=== PATIENT | female | born 1970 | race Caucasian/White ===

== ENCOUNTER 2022-04-25 16:23 | Outpatient (RCR) | payer BC, SELFPAY | END 2023-02-09 23:59 | disposition home or self-care (01) | PROVIDERS: PCP Family Medicine; Visit Provider Family Medicine | DX: M54.9 Dorsalgia, unspecified (principal); Z51.89 Encounter for other specified aftercare | CPT/HCPCS: 97110; 97162 ==

== ENCOUNTER 2022-07-29 07:31 | Outpatient (CLI) | payer BC, SELFPAY ==
[2022-07-29 09:52] LABS: Iron* 92 ug/dL (37-170)
[2022-07-29 09:56] LABS: Chloride* 107 mmol/L (96-114); Potassium* 4.2 mmol/L (3.6-5.1); Sodium* 138 mmol/L (135-149)
[2022-07-29 09:58] LABS: Alkaline Phosphatase* 123 U/L (40-150); Aspartate Amino Transferase* 24 U/L (12-35); Bilirubin Total* 0.8 mg/dL (0.1-1.5); Blood Urea Nitrogen* 10 mg/dL (5-24); Carbon Dioxide* 24 mmol/L (20-32); Cholesterol* 142 mg/dL (90-199); Creatinine* 0.5 mg/dL (0.5-1.5); Estimated Glomerular Filt Rate 115 ml/min; Total Protein* 6.2 g/dL (6.0-8.3)
[2022-07-29 09:59] LABS: Alanine Aminotransferase* 25 U/L (4-35); Calcium* 8.9 mg/dL (8.4-10.6); Glucose* 113 mg/dL (60-115); HDL Cholesterol* 52 mg/dL (>=50); LDL Cholesterol Calculated 76 mg/dL (<100); Triglycerides* 68 mg/dL (40-149)
[2022-07-29 10:03] LABS: Percent Iron Saturation 31 % (20-50); Total Iron Binding Capacity 293 ug/dL (265-497)
[2022-07-29 10:11] LABS: Vitamin D 25 Hydroxy* 45 ng/mL (30-80)
[2022-07-29 10:27] LABS: TSH With Reflex to FT4* 0.017 uIU/mL (0.270-4.200)
[2022-07-29 10:55] LABS: Free T4 Free Thyroxine* 1.49 ng/dL (0.70-1.85)
[2022-08-06 03:40] LABS: Vitamin B12* 933 pg/mL (243-894)
== END 2022-07-29 07:32 | disposition home or self-care (01) ==
LOC: NFLDREF 07:32
PROVIDERS: PCP Family Medicine; Visit Provider Family Medicine
DX: Z01.419 Encounter for gynecological examination (general) (routine) without abnormal findings (principal); E55.9 Vitamin D deficiency, unspecified; E03.9 Hypothyroidism, unspecified; D50.9 Iron deficiency anemia, unspecified; E66.01 Morbid (severe) obesity due to excess calories; E53.8 Deficiency of other specified B group vitamins; F41.9 Anxiety disorder, unspecified
CPT/HCPCS: 80053; 80061; 82306; 82607; 82728; 83540; 83550; 84439; 84443

== ENCOUNTER 2022-11-01 17:56 | Outpatient (CLI) | payer BC, SELFPAY ==
--- NOTE | 2022-11-01 18:00 | CRLHL7_ITS ---
For Patients: As a result of the Cures Act, medical imaging exams and procedure reports are released immediately into your electronic medical record. You may view this report before your referring provider. If you have questions, please contact your health care provider. BILATERAL SCREENING MAMMOGRAM WITH COMPUTER-AIDED DETECTION AND TOMOSYNTHESIS TECHNIQUE: CC and MLO views were obtained. These mammographic images have been obtained using full-field digital technique. These mammographic images were interpreted with the benefit of computer-aided detection. Breast Tomosynthesis was used in this interpretation. COMPARISON FILM: 06/17/20, 02/21/19, 02/20/18. FINDINGS: The breasts are almost entirely fatty IMPRESSION: There is no radiographic evidence for malignancy. ASSESSMENT: BI-RADS Category 2: Benign RECOMMENDATION: Routine screening mammogram in 1 year. A lay language report of this examination will be provided to the patient. Williams Norwood M.D. Diagnostic Radiologist [email or web address] DORA/travis Transcribed: 4:42 p.oscar robles/Dictated by: Williams Norwood MD @ 11/02/2022 9:43:00 AM (Electronically Signed)
== END 2022-11-01 17:57 | disposition home or self-care (01) ==
LOC: MAMMO 17:57
PROVIDERS: PCP Family Medicine; Visit Provider Family Medicine
DX: Z12.31 Encounter for screening mammogram for malignant neoplasm of breast (principal)
CPT/HCPCS: 77063; 77067

== ENCOUNTER 2023-01-09 09:20 | Outpatient (CLI) | payer BC, SELFPAY | END 2023-01-09 09:21 | disposition home or self-care (01) | LOC: OP CLINIC 09:20 | PROVIDERS: PCP Family Medicine; Visit Provider Surgery | DX: Z12.11 Encounter for screening for malignant neoplasm of colon (principal); K63.5 Polyp of colon | CPT/HCPCS: 45385; 88305; 99153; J2250; J3010 ==

== ENCOUNTER 2023-04-06 11:01 | Outpatient (CLI) | payer BC, SELFPAY ==
[2023-04-06 15:23] LABS: PCR FLU A Negative PCR FLU A (Negative); PCR FLU B Negative PCR FLU B (Negative)
[2023-04-06 15:24] LABS: SARS PCR* Negative SARS-CoV-2 (Negative)
== END 2023-04-06 11:02 | disposition home or self-care (01) ==
LOC: LONREF 11:02
PROVIDERS: PCP Family Medicine; Visit Provider Nurse Practitioner Family
DX: R50.9 Fever, unspecified (principal)
CPT/HCPCS: 87631

== ENCOUNTER 2023-08-04 07:45 | Outpatient (CLI) | payer BC, MEDICAID, SELFPAY ==
--- OUTSIDE RECORDS SUMMARY | 2023-08-10 15:39 | XMS_ITS | Clinical Summary ---
Author Name Unknown Organization [facility] Address [place], [place] [address] Care Team Providers Care Tongue Trimmer Name Role Phone Irene Cueva MD Primary Care Provider + Allergies Active Allergy Reactions Criticality Noted Date Comments Hydrocodone-Acetaminophe n Stomach Upset 09/05/2018 Patient will vomit with medication. Medications Medication Sig Dispensed Refills Start Date End Date Status CALCIUM CITRATE 1,000 MG TAB 2 tablets daily 0 05/28/2008 Active MULTIVITAMIN TAB take 1 tablet by oral route once daily with food 0 05/28/2008 Active AVIANE 0.1 MG-20 MCG TABIndications:Rou chun general medical examination at a health care facility take 1 tablet by oral route once daily 84 3 05/28/2008 Active FERROUS GLUCONATE 325 MG TABIndications:Sta tus post bariatric surgery Once daily 90 3 05/28/2008 Active AMBIEN 10 MG TAB take 1 tablet (10 mg) by oral route once daily at bedtime as needed 1 0 07/04/2008 Active sertraline (ZOLOFT) 100 mg tabletIndications: Dysthymia Take 1 tablet by mouth once daily. needs appt for further refills 30 Tab 0 09/01/2009 Active Syringe with Needle, Safety (BD INTEGRA) 3 mL 25 x 5/8 SyrgIndications:St atus post bariatric surgery As directed. 1 Syringe 0 10/27/2009 Active cyanocobalamin (VITAMIN B12) 1,000 mcg/mL injectionIndicatio ns:Status post bariatric surgery Inject 1 mL intramuscular every 4 weeks. 1 mL 0 10/28/2009 Active Ferrous Gluconate 324 mg (38 mg Iron) tabletIndications: Status post bariatric surgery Take 1 tablet by mouth once daily. 30 Tab 0 10/28/2009 Active cholecalciferol (VITAMIN D3) 5,000 unit capsule Take 5,000 Units by mouth once daily. 3 08/27/2018 Active norethindrone, Contraceptive, (MICRONOR, 28,) 0.35 mg tablet Take 0.35 mg by mouth once daily. 3 07/06/2018 Active venlafaxine (EFFEXOR XR) 150 mg Extended-Release capsule Take 225 mg by mouth once daily with a meal. 0 Active buPROPion (WELLBUTRIN XL) 300 mg Extended-Release tablet Take 300 mg by mouth once daily. 0 08/25/2018 Active buPROPion (WELLBUTRIN XL) 150 mg Extended-Release tablet Take 150 mg by mouth once daily. 1 08/07/2018 Active SUMAtriptan (IMITREX) 100 mg tablet Take 100 mg by mouth. FOR HEADACHE 3 07/25/2018 Active venlafaxine (EFFEXOR XR) 75 mg cp24 Extended-Release capsule Take 225 mg by mouth once daily with a meal. 3 07/15/2018 Active levothyroxine (SYNTHROID) 150 mcg tablet Take 150 mcg by mouth once daily. 3 10/15/2018 Active Active Problems Problem Noted Date Diagnosed Date CHRISTIANO (obstructive sleep apnea) 07/04/2008 Dysthymia 05/28/2008 Status post bariatric surgery 05/28/2008 Unspecified hypothyroidism 01/22/2007 Immunizations Name Administration Dates Next Due Td (Age >=7 Years) 05/30/2000 Family History Medical History Relation Name Comments Diabetes Father Hypertension Father Diabetes Mother Cancer-breast Sister 1 age 45 Diabetes Sister 1 Hyperlipidemia Sister 2 Hyperlipidemia Sister 3 Hypertension Sister 4 Relation Name Status Comments Father Alive Mother Alive Sister 1 Sister 2 Sister 3 Sister 4 Social History Tobacco Use Types Packs/Day Years Used Date Smoking Tobacco: Never Smokeless Tobacco: Never Tobacco Cessation:Counseling Given: Yes Alcohol Use Standard Drinks/Week Comments Yes 0 (1 standard drink = 0.6 oz pur e alcohol) rare Sex and Gender Information Value Date Recorded Sex Assigned at Not on file Gender Identity Not on file Sexual Orientation Not on file Obstetrics History Para Term AB IAB SAB Ectopic Multiple Livin g Live Births 0 0 0 0 0 0 0 0 0 0 Last Filed Vital Signs Vital Sign Reading Time Taken Comments Blood Pressure 116/80 12/21/2018 9:54 AM CDT Pulse 82 12/21/2018 9:54 AM CDT Temperature 36.8 ??C (98.2 ??F) 12/21/2018 9:54 AM CD T Respiratory Rate 16 12/28/2005 11:0 5 AM CDT Oxygen Saturation 98% 12/21/2018 9:54 AM CDT Inhaled Oxygen Concentration - - Weight 121.2 kg (267 lb 3.2 oz) 12/21/2018 9:54 AM CDT Height 155.5 cm (5' 1.22) 12/21/2018 9:54 AM CD T Body Mass Index 50.12 12/21/2018 9:54 AM CDT Plan of Treatment Health Maintenance Due Date Last Done Comments COVID-19 vaccine series (#1) 02/19/1973 Tdap 1983 Depression screening for age 12+ 1984 HIV for age 15-65 1987 Hepatitis C screening for age 18-79 1990 Tetanus booster 05/30/2010 05/30/2000 Colonoscopy through age 75 2017 Lipids for age 45-75 2017 01/25/2007 Mammogram for age 45-75 2017 BMI (ht and wt on same day) for age 18+ 12/22/2019 12/21/2018, 09/05/2018 Zoster (shingles) series for age 50+ (1 of 2) 2022 Influenza for age 50-64 03/24/2023 Pap test for age 21-65 08/05/2025 3, 08/05/2022, 02/10/2017, Additional history exists Pneumococcal series for age 6-64 Aged Out No longer eligible based on patient's age to complete this topic Care Teams Tongue Trimmer Relationship Specialty Start Date End Date Irene Cueva MD [address] [place] [address] PCP - General Family Practice 09/05/18
== END 2023-08-04 07:46 | disposition home or self-care (01) ==
LOC: NFLDREF 08-10 15:36
PROVIDERS: PCP Family Medicine; Referring Provider Family Medicine; Visit Provider Family Medicine
DX: D50.9 Iron deficiency anemia, unspecified (principal); E03.9 Hypothyroidism, unspecified; E53.8 Deficiency of other specified B group vitamins; E55.9 Vitamin D deficiency, unspecified
CPT/HCPCS: 80053; 80061

== ENCOUNTER 2023-09-15 10:27 | Outpatient (CLI) | payer BC, MEDICAID, SELFPAY | END 2023-09-15 10:28 | disposition home or self-care (01) | PROVIDERS: PCP Family Medicine; Visit Provider Family Medicine | DX: D50.9 Iron deficiency anemia, unspecified (principal); E03.9 Hypothyroidism, unspecified; E55.9 Vitamin D deficiency, unspecified; E53.8 Deficiency of other specified B group vitamins; Z98.84 Bariatric surgery status | CPT/HCPCS: 82306; 82607; 82728; 84439; 84443 ==

== ENCOUNTER 2023-09-25 10:23 | Outpatient (CLI) | payer MEDICAID, SELFPAY | END 2023-09-25 10:24 | disposition home or self-care (01) | PROVIDERS: PCP Family Medicine; Referring Provider Family Medicine; Visit Provider Family Medicine | DX: E03.9 Hypothyroidism, unspecified (principal) | CPT/HCPCS: 84439; 84443 ==

== ENCOUNTER 2023-12-11 07:39 | Outpatient (CLI) | payer BC, SELFPAY ==
--- OUTSIDE RECORDS SUMMARY | 2023-12-29 06:37 | XMS_ITS | Clinical Summary ---
Author Organization [facility] Address [place], [place] [address] Care Team Providers Care Minute Clerk For Basic Traffic Name Role Phone Irene Cueva MD Primary [...] by mouth once daily with a meal. Active buPROPion (WELLBUTRIN XL) 300 mg Extended-Release [...] Health Maintenance Due Date Last Done Comments Tdap 1983 Depression screening for age 12+ 1984 HIV for age 15-65 1987 Hepatitis C screening for age 18-79 1990 Tetanus booster 05/30/2010 05/30/2000 Colonoscopy through age 75 2017 Lipids for age 45-75 2017 01/25/2007 Mammogram for age 45-75 2017 BMI (ht and wt on same day) for age 18+ 12/22/2019 12/21/2018, 09/05/2018 Zoster (shingles) series for age 50+ (1 of 2) 2022 COVID-19 vaccine series ( - 2022-24 season) 2023 Influenza for age 50-64 03/24/2024 Pap test for age 21-65 08/05/2025 3, 08/05/2022, 02/10/2017, Additional history exists Pneumococcal series for age 6-64 Aged Out No longer eligible based on patient's age to complete this topic Procedures Procedure Name Priority Date/Time Associated Diagnosis Comments HPV THIN PREP Routine 08/05/2022 11:00 AM BRANCH EXAMINER LIPID PANEL Routine 01/25/2007 9:47 AM CDT Screening Lipid Disorders from Last 3 Months or Most Recently Relevant to Health Maintenance Results * HPV HIGH RISK (08/05/2022 11:00 AM BRANCH EXAMINER) TYPE 16 Negative Negative 08/11/2022 2:05 PM BRANCH EXAMINER [facility] TYPE 18 Negative Negative 08/11/2022 2:05 PM BRANCH EXAMINER [facility] OTHER HIGH RISK TYPES Negative Negative 08/11/2022 2:05 PM BRANCH EXAMINER [facility] Other (Cervical/Vagina l) 08/05/2022 11:00 AM BRANCH EXAMINER 08/09/2022 5:20 PM BRANCH EXAMINER Narrative [facility] - 08/11/2022 2:05 PM BRANCH EXAMINER HPV types 16, 18, 31, 33, 35, 39, 45, 51, 52, 56, 58, 59, 66 and 68 DNA were undetectable or below the pre-set threshold. Methodology: Jerman Chay 4800 HPV Test Irene Cueva MD MICROBIOLOGY [facility] [address] * LIPID PANEL (01/25/2007 9:47 AM CDT) CHOLESTEROL,TOTAL 170 110 - 199 mg/dL [facility] TRIGLYCERIDES 102 <150 mg/dL [facility] HDL CHOLESTEROL 67 >40 mg/dL [facility] CHOL/HDL RATIO 2.54 <4.51 [facility] LDL CHOLESTEROL 83 <131 mg/dL [facility] PATIENT STATUS Fasting [facility] Blood specimen (specimen) BLOOD SPECIMEN / Unknown 01/25/2007 9:47 AM CDT 01/25/2007 9:43 AM CDT Julieta Carpenter CHEMISTRY [facility] [address] [place] [address] from Last 3 Months or Most Recently Relevant to Health Maintenance Care Teams Minute Clerk For Basic Traffic Relationship Specialty Start Date End Date Irene Cueva MD [address] [place] [address] PCP - General Family Practice 09/05/18
== END 2023-12-11 07:40 | disposition home or self-care (01) ==
LOC: NFLDREF 12-29 06:35
PROVIDERS: PCP Family Medicine; Referring Provider Family Medicine; Visit Provider Family Medicine
DX: E03.9 Hypothyroidism, unspecified (principal)
CPT/HCPCS: 84443

== ENCOUNTER 2024-11-06 07:51 | Outpatient (CLI) | payer MEDICAID, SELFPAY | END 2024-11-06 07:52 | disposition home or self-care (01) | LOC: NFLDREF 11-08 17:51 | PROVIDERS: PCP Family Medicine; Referring Provider Family Medicine; Visit Provider Family Medicine | DX: R73.01 Impaired fasting glucose (principal); E53.8 Deficiency of other specified B group vitamins; D50.9 Iron deficiency anemia, unspecified; E03.9 Hypothyroidism, unspecified; E55.9 Vitamin D deficiency, unspecified; M81.0 Age-related osteoporosis without current pathological fracture; E78.5 Hyperlipidemia, unspecified | CPT/HCPCS: 80053; 80061; 82306; 82607; 82728; 84443 ==

== ENCOUNTER 2024-11-19 15:25 | Outpatient (CLI) | payer MEDICAID, SELFPAY ==
--- NOTE | 2024-11-19 15:40 | CRLHL7_ITS ---
For Patients: As a result of the Century Cures Act, medical imaging exams and procedure reports are released immediately into your electronic medical record. You may view this report before your referring provider. If you have questions, please contact your health care provider. INDICATION: BILATERAL SCREENING MAMMOGRAM, ASYMPTOMATIC 54 F COMPARISON: 11/01/22, 06/17/20, 02/21/19 TECHNIQUE: CC and MLO views were obtained. These mammographic images have been obtained using full-field digital technique. These mammographic images were interpreted with the benefit of computer aided detection and tomosynthesis. BREAST COMPOSITION: The breasts are almost entirely fatty. FINDINGS: No suspicious findings. ASSESSMENT: BI-RADS 1 Negative RECOMMENDATION: Annual screening mammogram. A lay language report of this examination will be provided to the patient. Dictated by: Williams Norwood MD @ 11/27/2024 12:35:54 (Electronically Signed)
== END 2024-11-19 15:26 | disposition home or self-care (01) ==
LOC: MAMMO 15:26
PROVIDERS: PCP Family Medicine; Visit Provider Family Medicine
DX: Z12.31 Encounter for screening mammogram for malignant neoplasm of breast (principal)
CPT/HCPCS: 77063; 77067

== ENCOUNTER 2024-11-22 07:59 | Outpatient (CLI) | payer MEDICAID, SELFPAY ==
--- NOTE | 2024-11-22 08:15 | CRLHL7_ITS ---
For Patients: As a result of the Century Cures Act, medical imaging exams and procedure reports are released immediately into your electronic medical record. You may view this report before your referring provider. If you have questions, please contact your health care provider. INDICATION: postmenopausal bleeding COMPARISON: none TECHNIQUE: 2D martinez scale and color Doppler images were acquired of the pelvis using a transabdominal and transvaginal approach. FINDINGS: Sonographic images demonstrate a normal size and smooth outer contour of the uterus. Uterus measures 7.7 cm in length by 3.5 cm in AP diameter by 4.0 cm in transverse dimension. Small cervical nabothian cysts are present. Hyperechoic structure within the posterior fundal myometrium measures 1.5 x 0.9 x 1.3 cm. The endometrial lining measures 4.8 mm in composite thickness. The ovaries are not visualized due to overlying bowel gas. There are no suspicious fluid collections within the cul-de-sac. IMPRESSION: Posterior fundal intramural fibroid measures 1.5 cm. Endometrial thickness 4.8 millimeters. No endometrial fluid. Dictated by Williams Norwood MD @ 11/22/2024 10:08:57 AM (Electronically Signed)
== END 2024-11-22 08:00 | disposition home or self-care (01) ==
LOC: US 08:00
PROVIDERS: PCP Family Medicine; Visit Provider Family Medicine
DX: N95.0 Postmenopausal bleeding (principal); D25.1 Intramural leiomyoma of uterus; R93.89 Abnormal findings on diagnostic imaging of other specified body structures
CPT/HCPCS: 76830; 76856

== ENCOUNTER 2025-04-04 06:00 | Day surgery (SDC) | payer MEDICAID, SELFPAY ==
[2025-04-04 06:25] VITALS: BMI 49.6
[2025-04-04] MEDS: LACTATED RINGERS 500 ML 500 ML 100 ML IV (06:29)
[2025-04-04 06:51] VITALS: BP 140/86; PULSE 83; RESP 16; TEMP 36.9; O2SAT 95
[2025-04-04 06:51] LABS: Hemoglobin* 13.6 gm/dL (12.0-16.0)
[2025-04-04] MEDS: SODIUM CHLORIDE 0.9 % (FLUSH) 10 ML SYRINGE IVF (06:54)
--- NOTE | 2025-04-04 07:16 | W.PM.H&PU_ITS ---
History & Physical Update History & Physical Update H&P Reviewed and patient assessed: No changes noted H&P Updates: Ms. Tucker is seen in pre-op prior to planned hysteroscopy, D&C, mirena IUD insertion for post-menopausal bleeding. No interval change to her health history or questions today. We again reviewed the risks, benefits and alternatives to the planned procedure. Written consent was re-signed. Post-procedure restrictions and expectations reviewed. Pre-op labs reviewed and are within normal limits. No UPT as post- menopausal (2 years or amenorrhea prior to onset of this bleeding). No perioperative antibiotics indicated.
--- NOTE | 2025-04-04 07:18 | P.GYNPRC_ITS ---
Procedure Note Time Seen by Provider: 08:21 Date of procedure: 04/04/25 Will [facility] bill your pro fee for this procedure?: Yes Pre-op diagnosis: Postmenopausal bleeding Post-op diagnosis: Postmenopausal bleeding Procedure: Hysteroscopy, dilation and curettage (Truclear), Mirena IUD insertion Anesthesia: MAC and local Complications: None Surgeon: Leonardo Young MD Estimated blood loss (mL): 5 IV fluids (mL): 400 Urine Output (mL): 150 Pathology: specimen obtained, sent to pathology Condition: stable Disposition: floor Findings: External genital, vaginal and cervix appear within normal limits Endometrial cavity notable for proliferative, polypoid and mildly erythematous appearance Normal bilateral tubal ostia Procedure Description: Procedure in detail: Patient was taken to the operating room with IV running. She was positioned in dorsal lithotomy position with her legs fully supported in Yellofin stirrups. Monitored anesthesia care was administered. She was prepped and draped in the usual sterile fashion. Exam under anesthesia was performed for the above-noted findings. Speculum was inserted. Cervix was challenging to visualize due to narrowed introitus, thus speculum was removed and two [place] retractors were placed anterior and posterior in the vaginal canal. Cervix visualized and grasped along the anterior lip with a single-tooth tenaculum. Paracervical block was performed in the usual fashion with 0.5% bupivicaine. Cervix was serially dilated to accommodate the TRUCLEAR hysteroscope. Uterus sounds to 8cm. Hysteroscope was assembled with saline inflow and outflow in place. The line was flushed of bubbles. The hysteroscope was advanced through the cervix into the endometrial cavity for the above noted findings. The tissue morcellator was then inserted through the operating channel. Window lock was performed. Under direct visualization, the endometrial cavity was circumferentially curetted with the tissue morcellator. The hysteroscope and morcellator were then removed from the uterus. Mirena IUD was loaded into the insertion tube, inserted to the sounded depth, and the IUD is deployed. Insertion tube was removed. Hysteroscope was reintroduced and confirmed proper intrauterine location of IUD at fundus. Hysteroscope removed. Strings are trimmed to 3 cm. Tenaculum was removed from the anterior lip of cervix. Hemostasis was noted. Patient tolerated procedure well. She was taken to recovery area in stable condition. Debrief was completed. Path specimen is endometrial curettings.
--- NOTE | 2025-04-04 07:37 | SUR.OPER ---
PATIENT QUESTIONS ANSWERED SATISFACTORILY PREOPERATIVELY. PATIENT BROUGHT TO OR #4 PER CART. Patient positioned supine on OR #4 bed for the induction. Pt. then moved into the lithotomy position for the procedure.? Final approval of positioning by surgeon.
[2025-04-04] MEDS: BUPIVACAINE 0.5% 30 ML 20 ML INJECTION (07:44)
[2025-04-04 08:20] VITALS: BP 136/81; PULSE 83; RESP 16; TEMP 36.1; O2SAT 96
--- NOTE | 2025-04-04 08:22 | P.ANES_ITS ---
Anesthesia Charges Start Date/Time Anesthesia Start Date: 04/04/25 Anesthesia Start Time: 07:15 Stop Date/Time Anesthesia Stop Date: 04/04/25 Anesthesia Stop Time: 08:21 Coding CPT Codes CPT Codes: ANESTH HYSTEROSCOPE/GRAPH - 04678 ([id number]) P3 - PATIENT W/SEVERE SYS DISEASE, QX - RN DIGESTIVE SVC W/ MD MED DIRECTION, QK - BEET FLUMER 2-4 CNCRNT ANES PROC
--- NOTE | 2025-04-04 08:22 | W.ANESCHARGE ---
Anesthesia Charges Start Date/Time Anesthesia Start Date: 04/04/25 Anesthesia Start Time: 07:15 Stop Date/Time Anesthesia Stop Date: 04/04/25 Anesthesia Stop Time: 08:21 Coding CPT Codes CPT Codes: ANESTH HYSTEROSCOPE/GRAPH - 30914 ([id number]) P3 - PATIENT W/SEVERE SYS DISEASE, QX - CROSS COUNTRY AND TRACK AND FIELD COACH SVC W/ MD MED DIRECTION, QK - MICROSOFT DYNAMICS AX DEVELOPER 2-4 CNCRNT ANES PROC
[2025-04-04 08:30] VITALS: BP 129/72; PULSE 71; RESP 16; O2SAT 96
[2025-04-04 08:45] VITALS: BP 132/74; PULSE 74; RESP 16; O2SAT 96
--- NOTE | 2025-04-04 10:21 | P.ANES_ITS ---
Anesthesia Charges Start Date/Time Anesthesia Start Date: 04/04/25 Anesthesia Start Time: 07:15 Stop Date/Time Anesthesia Stop Date: 04/04/25 Anesthesia Stop Time: 08:21 Coding CPT Codes CPT Codes: ANESTH HYSTEROSCOPE/GRAPH - 67294 ([id number]) QK - JAVA WEB ENGINEER 2-4 CNCRNT ANES PROC, QX - PORT DRIER SVC W/ MD MED DIRECTION, P3 - PATIENT W/SEVERE SYS DISEASE
--- NOTE | 2025-04-04 10:21 | W.ANESCHARGE ---
Anesthesia Charges Start Date/Time Anesthesia Start Date: 04/04/25 Anesthesia Start Time: 07:15 Stop Date/Time Anesthesia Stop Date: 04/04/25 Anesthesia Stop Time: 08:21 Coding CPT Codes CPT Codes: ANESTH HYSTEROSCOPE/GRAPH - 12843 ([id number]) QK - FIELD ARTILLERY CREWMEMBER 2-4 CNCRNT ANES PROC, QX - TIRE MAN SVC W/ MD MED DIRECTION, P3 - PATIENT W/SEVERE SYS DISEASE
== END 2025-04-04 09:35 | disposition home or self-care (01) ==
LOC: OR 06:02
PROVIDERS: PCP Family Medicine; Visit Provider Obstetrics & Gynecology
PROC: 0UDB8ZZ Extraction of Endometrium, Via Natural or Artificial Opening Endoscopic (ICD-10-PCS; CPT 58558; principal; 2025-04-04 07:15)
DX: N95.0 Postmenopausal bleeding (principal); N84.0 Polyp of corpus uteri
CPT/HCPCS: 58558; 58300; 00952; 36415; 81025; 85018; 86850; 86900; 86901; 88305; C1782; J0665; J1100; J2405; J2704; J3010; J7120; J7298